=== PATIENT | female | born 1945 | race African-American/Black ===

== ENCOUNTER 2018-12-20 01:22 | Emergency (ER) | payer MEDICARE ==
[~2018-12-20] VITALS: Ht 167.6 cm; Wt 81.6 kg
[2018-12-20] MEDS ORDERED: ASPIRIN81 MG ORAL (01:25)
[2018-12-20] MEDS ORDERED: HYDRALAZINE HCL10 MG ORAL (01:25)
[2018-12-20] MEDS ORDERED: GLIPIZIDE5 MG ORAL (01:25)
[2018-12-20] MEDS ORDERED: ATORVASTATIN CA10 MG ORAL (01:25)
[2018-12-20] MEDS ORDERED: PLAVIX75 MG ORAL (01:25)
[2018-12-20 01:30] VITALS: BP 156/88
--- NOTE | 2018-12-20 01:32 | NUR ---
ED Nurse Note: Patient was brought in to ER by RA from [facility] due to itchiness. Per patient she has itchiness all the time but today it got worse. AAO x4, VSS at this time, skin is dry, intact, no rushes noticed.
[2018-12-20] MEDS ORDERED: DiphenhydrAMINE 50mg/ml Inj IVP ONE ×2 (01:45→02:15)
[2018-12-20 02:00] LABS: BASOPHILS % (AUTO) 0.7 % (0.0-2.0); EOSINOPHILS % (AUTO) 4.4 % (0.0-3.0); HEMATOCRIT 27.7 % (37.0-47.0); LYMPHOCYTES % (AUTO) 21.9 % (20.0-45.0); MEAN CORPUSCULAR VOLUME 95 FL (80-99); MONOCYTES % (AUTO) 5.8 % (1.0-10.0); NEUTROPHILS % (AUTO) 67.3 % (45.0-75.0); PLATELET COUNT 232 K/UL (150-450); RED BLOOD COUNT 2.92 M/UL (4.20-5.40); RED CELL DISTRIBUTION WIDTH 12.5 % (11.6-14.8); WHITE BLOOD COUNT 8.6 K/UL (4.8-10.8)
[2018-12-20 02:12] LABS: ANION GAP 11 mmol/L (5-15); BLOOD UREA NITROGEN 76 mg/dL (7-18); CALCIUM 9.3 MG/DL (8.5-10.1); CARBON DIOXIDE 24 MMOL/L (21-32); CHLORIDE 108 MMOL/L (98-107); CREATININE 4.5 MG/DL (0.55-1.30); SODIUM 143 MMOL/L (136-145)
[2018-12-20 02:17] LABS: ALANINE AMINOTRANSFERASE 36 U/L (12-78); ALBUMIN 3.8 G/DL (3.4-5.0); ALBUMIN/GLOBULIN RATIO 0.9 (1.0-2.7); ALKALINE PHOSPHATASE 89 U/L (46-116); ASPARTATE AMINO TRANSFERASE 23 U/L (15-37); BILIRUBIN,TOTAL 0.2 MG/DL (0.2-1.0)
--- NOTE | 2018-12-20 02:38 | NUR ---
Spoke with Marilu at [facility].Care-aware of patient going back.
[2018-12-20] MEDS ORDERED: BENADRYL25 MG ORAL (02:54)
--- NOTE | 2018-12-20 02:55 | Emergency Room Report ---
History of Present Illness General Chief Complaint: Skin Rash/Abscess Source: Patient, Medical Record Present Illness HPI This is a 73-year-old female with multiple medical problem. She presents with chief complaint of itching. Onset today. Worse with scratching. No new medication. No new food. No rash. Denies any other complaint. History is limited limited because of her dementia. Allergies: Coded Allergies: No Known Allergies (Unverified , 12/20/18) Patient History Past Medical History: see triage record, old chart reviewed Past Surgical History: other Pertinent Family History: none Social History: Denies: smoking Now: No Immunizations: UTD Reviewed Nursing Documentation: PSxH: Agreed Nursing Documentation-PMH Past Medical History: No History, Except For Hx Hypertension: Yes Hx Diabetes: Yes Review of Systems Eye: Denies: eye pain, blurred vision ENT: Denies: ear pain, nose congestion, throat swelling Respiratory: Denies: cough, shortness of breath Cardiovascular: Denies: chest pain, palpitations Gastrointestinal: Denies: abdominal pain, diarrhea, nausea, vomiting Musculoskeletal: Denies: back pain, joint pain Skin: Denies: rash Neurological: Denies: headache, numbness Endocrine: Denies: increased thirst, increased urine Hematologic/Lymphatic: Denies: easy bruising All Other Systems: negative except mentioned in HPI Physical Exam Vital Signs Date Time Temp Pulse Resp B/P (MAP) Pulse Ox O2 Delivery O2 Flow Rate FiO2 12/20/18 01:21 98.6 96 14 96 Room Air 12/20/18 01:30 156/88 vitals with high blood pressure Sp02 EP Interpretation: reviewed, normal General Appearance: well appearing, no apparent distress, alert Head: normocephalic, atraumatic Eyes: bilateral eye PERRL, bilateral eye EOMI ENT: hearing grossly normal, normal pharynx Neck: full range of motion, supple, no meningismus Respiratory: chest non-tender, lungs clear, normal breath sounds Cardiovascular #1: regular rate, rhythm, no murmur Gastrointestinal: normal bowel sounds, non tender, no mass, no organomegaly, no bruit, non-distended Musculoskeletal: back normal, gait/station normal, normal range of motion Psychiatric: mood/affect normal Skin: warm/dry Medical Decision Making Diagnostic Impression: Primary Impression: Generalized pruritus ER Course Patient with pruritus. No evidence of any allergic reaction. Better after Benadryl. This may be uremia but kidney function is at baseline. I spoke with [facility], her last creatinine was 4.5 and 4.31. This was in October. There is no liver problem are elevated bilirubin to cause her itching. We'll discharge home. Last Vital Signs Date Time Temp Pulse Resp B/P (MAP) Pulse Ox O2 Delivery O2 Flow Rate FiO2 12/20/18 01:30 98.6 14 156/88 96 Room Air 12/20/18 01:21 96 Status: improved Disposition: XFER SNF Condition: Stable Scripts Diphenhydramine Hcl* (BENADRYL*) 25 Mg Capsule 25 MG ORAL Q6H PRN for Itching, #30 CAP Prov: Braeden Cates MD 12/20/18 Referrals: [facility] (PCP) Additional Instructions: Follow-up with your doctor in a week. Return if worse. Braeden Cates MD December 20, 2018 02:55
--- NOTE | 2018-12-20 03:01 | NUR ---
ED Nurse Note: Pt cleared by health care Provider for discharge. DC instructions/prescription was given and explained to pt. All medical deviecs such as ID band removed. Pt is AAO x3, taken by RA back to [facility], left with all personal belongings.
== END 2018-12-20 03:30 ==
LOC: EDBD 01:22 → EMR 01:35
DX: L29.9 Pruritus, unspecified (principal); F03.90 Unspecified dementia, unspecified severity, without behavioral disturbance, psychotic disturbance, mood disturbance, and anxiety; I10 Essential (primary) hypertension; E11.9 Type 2 diabetes mellitus without complications
CPT/HCPCS: 36415; 80053; 85025; 96374; 99284; J1200